=== PATIENT | male | born 1950 | race Caucasian/White ===

== ENCOUNTER 2016-07-07 13:43 | Emergency (ER) | payer OTHER ==
[2016-07-07] MEDS ORDERED: NKA (14:04)
[2016-07-07] MEDS ORDERED: AUGMENTIN 875-1 EAC2 PO (16:37)
== END 2016-07-07 17:05 ==
LOC: EDMED 13:43
DX: S01.81XA Laceration without foreign body of other part of head, initial encounter (principal); S01.21XA Laceration without foreign body of nose, initial encounter; Z23 Encounter for immunization; W54.0XXA Bitten by dog, initial encounter